=== PATIENT | male | born 1970 | race Caucasian/White ===

== ENCOUNTER 2021-11-23 01:22 | Emergency (ER) | payer OTHER, SELFPAY ==
--- NOTE | ~2021-11-23 | CT_ITS ---
EXAMINATION: CT thoracic lumbar wo con DATE: 11/23/2021 02:43 INDICATION: Thoracic and lumbar back pain after fall TECHNIQUE: Computed tomography (CT) of the thoracic and lumbar spine was performed without intravenou s contrast. The dose-length product (DLP) was 1688.45 mGy-cm. Iterative reconstruction was used. COMPARISON: None FINDINGS: Thoracic spine: There is no fracture, dislocation, or subluxation. The vertebral body heights, alignm ent, and intervertebral disc spaces are normal. Small degenerative osteophytes project from the anter ior endplates of multiple vertebral bodies. The paravertebral soft tissues are unremarkable. Lumbar spine: There is no fracture, dislocation, or subluxation. The vertebral body heights, alignmen t, and intervertebral disc spaces are normal. Small degenerative osteophytes project from the anterio r endplates of multiple vertebral bodies. The paravertebral soft tissues are unremarkable. IMPRESSION: 1. Mild thoracic and lumbar spondylosis without acute osseous abnormality. Reviewed, dictated and finalized at location B.
[2021-11-23 01:20] VITALS: BP 137/90; PULSE 75; RESP 18; TEMP 36.6; O2SAT 100
[2021-11-23] MEDS: HYDROcodone/acetaminophen (*CRX) 5-325 MG TABLET 1 TAB PO (01:49)
[2021-11-23] MEDS: TETANUS,DIPHTHERIA,AC PERTUSSIS ADULT (0.5 ML) BOOSTRIX IM (01:49)
[2021-11-23] MEDS: IBUPROFEN 600 MG TABLET PO (02:23)
[2021-11-23 03:00] VITALS: BP 133/79; PULSE 71; RESP 17; O2SAT 100
[2021-11-23 03:47] VITALS: BP 134/90; PULSE 53; RESP 14; TEMP 36.4; O2SAT 98
--- NOTE | 2021-11-23 04:12 | ED_ITS ---
HPI - Fall General Chief Complaint: Fall Stated Complaint: BACK AND ELBOW INJURY S/P FALL Time Seen by Provider: 11/23/21 01:24 Related Data Allergies Allergy/AdvReac Type Severity Reaction Status Date / Time No Known Allergies Allergy Verified 11/23/21 01:27 Course Vital Signs Vital signs: Vital Signs Temperature 97.8 F 11/23/21 01:20 Pulse Rate 75 11/23/21 01:20 Respiratory Rate 18 11/23/21 01:20 Blood Pressure 137/90 11/23/21 01:20 Pulse Oximetry 100 11/23/21 01:20 Oxygen Delivery Room Air 11/23/21 01:20 Temperature 97.6 F 11/23/21 03:47 Pulse Rate 53 L 11/23/21 03:47 Respiratory Rate 14 11/23/21 03:47 Blood Pressure 134/90 11/23/21 03:47 Pulse Oximetry 98 11/23/21 03:47 Oxygen Delivery Room Air 11/23/21 01:20 Discharge Plan Discharge Clinical Impression: Back injury, Abrasion of elbow Patient Disposition: Home, Self-Care Condition: Stable Instructions: Antibiotic Form, Low Back Strain (ED), Abrasion (ED) Additional Instructions: Please follow up with the doctor and come back if you feel worse. Take ibuprofen or tylenol as needed for pain. Prescriptions: New lidocaine 4 % adhesive patch,medicated 1 patch topical BID PRN (Reason: pain) Qty: 10 0RF Follow-up/Referrals: PHYSICIAN,CERTIFIED ART THERAPIST [Primary Care Provider] - Cipriano Gracia, [Physician] - 2 Days
== END 2021-11-23 04:37 | disposition home or self-care (01) ==
PROVIDERS: Emergency Provider Emergency Medicine
DX: S39.92XA Unspecified injury of lower back, initial encounter (principal); Z23 Encounter for immunization; M47.816 Spondylosis without myelopathy or radiculopathy, lumbar region; M47.814 Spondylosis without myelopathy or radiculopathy, thoracic region; W01.0XXA Fall on same level from slipping, tripping and stumbling without subsequent striking against object, initial encounter
CPT/HCPCS: 72128; 72131; 90471; 90715; 99284; A9270